=== PATIENT | male | born 1995 | race African-American/Black ===

== ENCOUNTER 2016-09-05 20:13 | Emergency (ER) | payer OTHER ==
[~2016-09-05] VITALS: Ht 170.2 cm; Wt 49.7 kg
[2016-09-05] MEDS ORDERED: ATARAX,VISTARIL25 MG PO (22:45)
[2016-09-05 23:06] VITALS: BP 134/110
== END 2016-09-05 23:07 | disposition home or self-care (01) ==
LOC: EME 20:13
DX: F41.9 Anxiety disorder, unspecified (principal); F32.9 Major depressive disorder, single episode, unspecified; F43.22 Adjustment disorder with anxiety; F17.200 Nicotine dependence, unspecified, uncomplicated
CPT/HCPCS: 90839; 99281; 99285; Q0177

== ENCOUNTER 2016-09-09 21:46 | Emergency (ER) | payer OTHER ==
[~2016-09-09] VITALS: Ht 170.2 cm; Wt 50.8 kg
[~2016-09-09 21:46] MED LIST: ATARAX,VISTARIL25 MG PO
[2016-09-09 21:50] VITALS: BP 126/79
[2016-09-10] MEDS ORDERED: BENADRYL25 MG PO (16:19)
== END 2016-09-09 22:29 | disposition left against medical advice (07) ==
LOC: EME → EDBD 21:46 → EME 21:46
DX: F41.9 Anxiety disorder, unspecified (principal); T50.995A Adverse effect of other drugs, medicaments and biological substances, initial encounter; G47.00 Insomnia, unspecified
CPT/HCPCS: 99281; 99283

== ENCOUNTER 2016-09-10 10:34 | Inpatient (IN) | payer OTHER ==
[~2016-09-10] VITALS: Ht 170.2 cm; Wt 49.3 kg
[2016-09-10 12:58] LABS: HEMATOCRIT 47.3 % (38.0-50.0); MCH 27.9 PG (29.0-34.0); MCHC 33.6 G/DL (30.0-36.0); PLATELET COUNT 294 K/uL (156-360); RBC DIS.WIDTH-CV 11.9 % (11.8-14.6); RBC DIS.WIDTH-SD 35.8 % (39-53); WHITE BLOOD COUNT 5.7 K/uL (4.1-10.2)
[2016-09-10 13:14] LABS: CHLORIDE 106 mEq/L (99-109); POTASSIUM 4.6 mEq/L (3.7-5.4); SODIUM 139 mEq/L (136-147)
[2016-09-10 13:15] LABS: GLUCOSE 160 mg/dL (70-99)
[2016-09-10 13:17] LABS: ANION GAP 10 MEQ/L (2-14)
[2016-09-10 13:19] LABS: GFR ESTIMATE (CALCULATED) > 59 mL/min/; SERUM ETHYL ALCOHOL < 10 mg/dL
[2016-09-10 13:20] LABS: UREA NITROGEN (BUN) 15 mg/dL (9-23)
[2016-09-10 14:12] LABS: AMPHETAMINE NEGATIVE (500 ng/mL); BARBITURATES NEGATIVE (200 ng/mL); BENZODIAZEPINES NEGATIVE (150 ng/mL); COCAINE NEGATIVE (150 ng/mL); INTERNAL CONTROLS VALID? YES; METHADONE NEGATIVE (200 ng/mL); METHAMPHETAMINE NEGATIVE (500 ng/mL); OPIATES (MORPHINE) NEGATIVE (100 ng/mL); OXYCODONE NEGATIVE (100 ng/mL); PHENCYCLIDINE NEGATIVE (25 ng/mL); PROPOXYPHENE NEGATIVE (300 ng/mL); THC CANNABINOIDS NEGATIVE (50 ng/mL); TRICYCLIC ANTIDEPRESSANTS NEGATIVE (300 ng/mL)
[2016-09-10] MEDS ORDERED: BENADRYL25 MG PO (16:19)
[2016-09-10 19:07] VITALS: BP 117/57
[2016-09-10 20:41] VITALS: BP 120/67
[2016-09-11 07:28] VITALS: BP 115/59
[2016-09-11 15:52] VITALS: BP 99/58
[2016-09-12 08:07] VITALS: BP 89/51
[2016-09-12 15:51] VITALS: BP 107/54
[2016-09-13 08:14] VITALS: BP 108/55
[2016-09-13 15:32] VITALS: BP 89/55
[2016-09-14 07:47] VITALS: BP 116/55
[2016-09-14] MEDS ORDERED: QUETIAPINE FUM200 MG PO (10:31)
[2016-09-14] MEDS ORDERED: SERTRALINE HCL50 MG PO (10:31)
== END 2016-09-14 13:09 | disposition home or self-care (01) | DRG 885 ==
LOC: EME 10:34 → 1WEST 16:00 → EDOF 16:00 → 1WEST 20:30
DX: F29 Unspecified psychosis not due to a substance or known physiological condition (principal); R45.851 Suicidal ideations; F41.9 Anxiety disorder, unspecified
CPT/HCPCS: 80048; 85027; 90839; 99281; 99285; G0480

== ENCOUNTER 2016-10-15 00:58 | Inpatient (IN) | payer OTHER ==
[~2016-10-15] VITALS: Ht 167.6 cm; Wt 49.8 kg
[~2016-10-15 00:58] MED LIST changes: +BENADRYL25 MG PO; +QUETIAPINE FUM200 MG PO; +SERTRALINE HCL50 MG PO
[2016-10-15 01:32] LABS: ADD MIUA? NO; BILIRUBIN NEGATIVE; BLOOD NEGATIVE; COLOR YELLOW ((YELLOW)); GLUCOSE (STRIP) NEGATIVE; KETONES 5; LEUKOCYTES NEGATIVE; NITRITE NEGATIVE; PROTEIN (STRIP) 30; SPECIFIC GRAVITY 1.024 (1.000-1.030)
[2016-10-15 01:38] LABS: AMPHETAMINE NEGATIVE (500 ng/mL); BARBITURATES NEGATIVE (200 ng/mL); BENZODIAZEPINES NEGATIVE (150 ng/mL); COCAINE NEGATIVE (150 ng/mL); INTERNAL CONTROLS VALID? YES; METHADONE NEGATIVE (200 ng/mL); METHAMPHETAMINE NEGATIVE (500 ng/mL); OPIATES (MORPHINE) NEGATIVE (100 ng/mL); OXYCODONE NEGATIVE (100 ng/mL); PHENCYCLIDINE NEGATIVE (25 ng/mL); PROPOXYPHENE NEGATIVE (300 ng/mL); THC CANNABINOIDS NEGATIVE (50 ng/mL); TRICYCLIC ANTIDEPRESSANTS NEGATIVE (300 ng/mL)
[2016-10-15 01:51] LABS: HEMATOCRIT 42.5 % (38.0-50.0); MCH 28.2 PG (29.0-34.0); MCHC 34.6 G/DL (30.0-36.0); MCV 81.6 FL (86-99); MEAN PLAT.VOLUME 9.1 uM^3 (9.0-12.4); PLATELET COUNT 248 K/uL (156-360); RBC DIS.WIDTH-CV 12.1 % (11.8-14.6); RBC DIS.WIDTH-SD 35.7 % (39-53); RED BLOOD COUNT 5.21 M/uL (4.00-5.50); WHITE BLOOD COUNT 5.6 K/uL (4.1-10.2)
[2016-10-15 01:59] LABS: CHLORIDE 108 mEq/L (99-109); POTASSIUM 3.6 mEq/L (3.7-5.4); SODIUM 140 mEq/L (136-147)
[2016-10-15 02:01] LABS: GLUCOSE 160 mg/dL (70-99)
[2016-10-15 02:02] LABS: ANION GAP 11 MEQ/L (2-14)
[2016-10-15 02:03] LABS: TOTAL BILIRUBIN 0.5 mg/dL (0.0-1.0)
[2016-10-15 02:04] LABS: SERUM ETHYL ALCOHOL < 10 mg/dL
[2016-10-15 02:05] LABS: ALKALINE PHOSPHATASE 48 IU/L (3-129); GFR ESTIMATE (CALCULATED) > 59 mL/min/
[2016-10-15 02:06] LABS: UREA NITROGEN (BUN) 7 mg/dL (9-23)
[2016-10-15 04:10] VITALS: BP 137/79
[2016-10-15 08:08] VITALS: BP 137/62
[2016-10-15 15:52] VITALS: BP 113/71
[2016-10-16 08:07] VITALS: BP 134/86
[2016-10-16 15:20] VITALS: BP 103/64
[2016-10-17 07:47] VITALS: BP 93/50
[2016-10-17 11:11] VITALS: BP 87/51
[2016-10-17 15:16] VITALS: BP 115/74
[2016-10-18 09:17] VITALS: BP 103/59
[2016-10-18 15:35] VITALS: BP 132/76
[2016-10-19 08:53] VITALS: BP 89/54
[2016-10-19 15:31] VITALS: BP 111/55
[2016-10-20 08:10] VITALS: BP 123/77
[2016-10-21 07:38] VITALS: BP 119/58
[2016-10-21 15:26] VITALS: BP 128/75
[2016-10-22 15:42] VITALS: BP 137/72
[2016-10-22] MEDS ORDERED: SERTRALINE HCL50 MG PO (15:48)
[2016-10-22] MEDS ORDERED: QUETIAPINE FUM300 MG PO (15:48)
== END 2016-10-22 16:03 | disposition left against medical advice (07) | DRG 885 ==
LOC: EME 00:58 → 1WEST 02:38 → EDOF 02:38 → 1WEST 03:58
PROVIDERS: Emergency Medicine
DX: F20.9 Schizophrenia, unspecified (principal); F32.9 Major depressive disorder, single episode, unspecified; R45.851 Suicidal ideations; F94.0 Selective mutism; F41.9 Anxiety disorder, unspecified
CPT/HCPCS: 80053; 81003; 82947; 85027; 90837; 97150 GO; 97165 GO; 99281; 99285; G0480; Q0177

== ENCOUNTER 2016-10-22 16:42 | Emergency (ER) | payer OTHER ==
[~2016-10-22 16:42] MED LIST changes: +QUETIAPINE FUM300 MG PO
== END 2016-10-22 18:26 | disposition left against medical advice (07) ==
LOC: EME 16:42
DX: Z53.21 Procedure and treatment not carried out due to patient leaving prior to being seen by health care provider (principal)

== ENCOUNTER 2017-05-22 15:46 | Emergency (ER) | payer OTHER ==
[~2017-05-22] VITALS: Ht 170.2 cm; Wt 54.5 kg
[2017-05-22 18:46] VITALS: BP 123/69
== END 2017-05-22 18:49 | disposition home or self-care (01) ==
LOC: EME 15:46
DX: F41.1 Generalized anxiety disorder (principal); F20.9 Schizophrenia, unspecified; R11.10 Vomiting, unspecified; R41.0 Disorientation, unspecified; R00.0 Tachycardia, unspecified; Z11.3 Encounter for screening for infections with a predominantly sexual mode of transmission; F17.200 Nicotine dependence, unspecified, uncomplicated
CPT/HCPCS: 71020; 90839; 93005; 99281; 99285; J0696

== ENCOUNTER 2017-09-26 13:13 | Emergency (ER) | payer OTHER ==
[~2017-09-26] VITALS: Ht 160 cm; Wt 50.3 kg
[2017-09-26 14:14] LABS: HEMATOCRIT 45.4 % (38.0-50.0); HEMOGLOBIN 15.8 G/DL (12.5-16.6); MCH 29.2 PG (29.0-34.0); MCHC 34.8 G/DL (30.0-36.0); MCV 83.9 FL (86-99); PLATELET COUNT 236 K/uL (156-360); RBC DIS.WIDTH-CV 12.2 % (11.8-14.6); RBC DIS.WIDTH-SD 36.9 % (39-53); RED BLOOD COUNT 5.41 M/uL (4.00-5.50); WHITE BLOOD COUNT 4.8 K/uL (4.1-10.2)
[2017-09-26 14:27] LABS: CHLORIDE 108 mEq/L (99-109); POTASSIUM 4.4 mEq/L (3.7-5.4); SODIUM 142 mEq/L (136-147)
[2017-09-26 14:28] LABS: GLUCOSE 99 mg/dL (70-99)
[2017-09-26 14:31] LABS: SERUM ETHYL ALCOHOL < 10 mg/dL
[2017-09-26 14:32] LABS: CREATININE 0.9 mg/dL (0.6-1.3); GFR ESTIMATE (CALCULATED) > 59 mL/min/ (58.99-99999)
[2017-09-26 14:33] LABS: UREA NITROGEN (BUN) 10 mg/dL (9-23)
[2017-09-26 15:08] VITALS: BP 111/72
== END 2017-09-26 15:10 | disposition home or self-care (01) ==
LOC: EME 13:13
PROVIDERS: Emergency Medicine Emergency Medical Services
DX: F32.9 Major depressive disorder, single episode, unspecified (principal); R46.89 Other symptoms and signs involving appearance and behavior; F20.9 Schizophrenia, unspecified; F84.0 Autistic disorder; F17.200 Nicotine dependence, unspecified, uncomplicated
CPT/HCPCS: 80048; 85027; 99281; 99284; G0480

== ENCOUNTER 2017-11-08 13:42 | Emergency (ER) | payer OTHER ==
[~2017-11-08] VITALS: Ht 170.2 cm; Wt 51.5 kg
[2017-11-08 14:53] LABS: HEMATOCRIT 41.9 % (38.0-50.0); HEMOGLOBIN 14.7 G/DL (12.5-16.6); MCH 29.2 PG (29.0-34.0); MCHC 35.1 G/DL (30.0-36.0); MCV 83.3 FL (86-99); PLATELET COUNT 216 K/uL (156-360); RBC DIS.WIDTH-CV 12.1 % (11.8-14.6); RBC DIS.WIDTH-SD 36.3 % (39-53); RED BLOOD COUNT 5.03 M/uL (4.00-5.50); WHITE BLOOD COUNT 4.4 K/uL (4.1-10.2)
[2017-11-08 15:03] LABS: CHLORIDE 105 mEq/L (99-109); POTASSIUM 3.9 mEq/L (3.7-5.4); SODIUM 142 mEq/L (136-147)
[2017-11-08 15:04] LABS: GLUCOSE 114 mg/dL (70-99)
[2017-11-08 15:08] LABS: GFR ESTIMATE (CALCULATED) > 59 mL/min/ (58.99-99999)
[2017-11-08 15:09] LABS: UREA NITROGEN (BUN) 10 mg/dL (9-23)
[2017-11-08] MEDS ORDERED: COGENTIN1 MG PO (16:38)
[2017-11-08 17:05] VITALS: BP 120/65
== END 2017-11-08 17:07 | disposition home or self-care (01) ==
LOC: EME 13:42
PROVIDERS: Nurse Practitioner Family
DX: G24.09 Other drug induced dystonia (principal); T43.4X5A Adverse effect of butyrophenone and thiothixene neuroleptics, initial encounter; F20.9 Schizophrenia, unspecified; F41.1 Generalized anxiety disorder; Z91.14 Patient's other noncompliance with medication regimen; Z91.19 Patient's noncompliance with other medical treatment and regimen; F84.0 Autistic disorder; F17.200 Nicotine dependence, unspecified, uncomplicated
CPT/HCPCS: 80048; 81003; 85027; 90839; 99281; 99284

== ENCOUNTER 2018-01-13 03:38 | Emergency (ER) | payer OTHER ==
[~2018-01-13] VITALS: Ht 167.6 cm; Wt 50.1 kg
[~2018-01-13 03:38] MED LIST changes: +COGENTIN1 MG PO
[2018-01-13 05:12] LABS: CHLORIDE 108 mEq/L (99-109); POTASSIUM 3.8 mEq/L (3.7-5.4); SODIUM 141 mEq/L (136-147)
[2018-01-13 05:13] LABS: GLUCOSE 95 mg/dL (70-99)
[2018-01-13 05:17] LABS: GFR ESTIMATE (CALCULATED) > 59 mL/min/ (58.99-99999)
[2018-01-13 05:18] LABS: UREA NITROGEN (BUN) 11 mg/dL (9-23)
[2018-01-13 05:25] LABS: HEMATOCRIT 43.7 % (38.0-50.0); HEMOGLOBIN 15.3 G/DL (12.5-16.6); MCH 29.1 PG (29.0-34.0); MCV 83.2 FL (86-99); PLATELET COUNT 250 K/uL (156-360); RBC DIS.WIDTH-CV 11.7 % (11.8-14.6); RBC DIS.WIDTH-SD 35.3 % (39-53); RED BLOOD COUNT 5.25 M/uL (4.00-5.50); WHITE BLOOD COUNT 5.5 K/uL (4.1-10.2)
[2018-01-13 06:11] VITALS: BP 111/72
== END 2018-01-13 06:25 | disposition home or self-care (01) ==
LOC: EME → EDBD 03:38 → EME 06:25
PROVIDERS: Emergency Medicine
DX: R00.2 Palpitations (principal); F41.1 Generalized anxiety disorder; F20.9 Schizophrenia, unspecified; F84.0 Autistic disorder; F17.200 Nicotine dependence, unspecified, uncomplicated
CPT/HCPCS: 71046; 80048; 85027; 93005; 99281; 99284